=== PATIENT | female | born 1995 | race Two or more races ===

== ENCOUNTER 2018-02-01 11:45 | Emergency (ER) | payer OTHER ==
[~2018-02-01] VITALS: Ht 144.8 cm; Wt 67.6 kg
== END 2018-02-01 14:13 | disposition home or self-care (01) ==
LOC: ER 11:45
DX: M26.69 Other specified disorders of temporomandibular joint (principal)

== ENCOUNTER 2018-02-09 08:44 | Outpatient (CLI) | payer OTHER | END 2018-02-09 15:00 | disposition home or self-care (01) | LOC: LAB 08:44 | DX: N92.5 Other specified irregular menstruation (principal); I95.89 Other hypotension; Z13.1 Encounter for screening for diabetes mellitus ==

== ENCOUNTER 2018-02-11 08:27 | Outpatient (CLI) | payer OTHER | END 2018-02-11 08:54 | disposition home or self-care (01) | LOC: SONOGRAMA 08:27 | DX: N92.5 Other specified irregular menstruation (principal) ==

== ENCOUNTER 2018-02-23 13:09 | Emergency (ER) | payer OTHER ==
[~2018-02-23] VITALS: Ht 152.4 cm; Wt 65.8 kg
== END 2018-02-23 21:38 | disposition home or self-care (01) ==
LOC: ER 13:09
DX: N83.292 Other ovarian cyst, left side (principal)

== ENCOUNTER 2018-03-19 10:58 | Outpatient (CLI) | payer OTHER | END 2018-03-19 11:10 | disposition home or self-care (01) | LOC: LAB 10:58 | DX: R97.8 Other abnormal tumor markers (principal) ==

== ENCOUNTER 2018-07-12 16:22 | Emergency (ER) | payer OTHER ==
[~2018-07-12] VITALS: Ht 144.8 cm; Wt 70.8 kg
== END 2018-07-12 19:56 | disposition home or self-care (01) ==
LOC: ER 16:22
DX: B34.9 Viral infection, unspecified (principal); R50.9 Fever, unspecified

== ENCOUNTER 2018-07-17 13:09 | Outpatient (CLI) | payer OTHER | END 2018-07-17 13:16 | disposition home or self-care (01) | LOC: LAB 13:09 | DX: Z11.3 Encounter for screening for infections with a predominantly sexual mode of transmission (principal) ==

== ENCOUNTER 2018-09-03 09:10 | Outpatient (CLI) | payer OTHER | END 2018-09-03 09:33 | disposition home or self-care (01) | LOC: LAB 09:10 | DX: R10.84 Generalized abdominal pain (principal); E78.49 Other hyperlipidemia; R42 Dizziness and giddiness; Z00.00 Encounter for general adult medical examination without abnormal findings ==

== ENCOUNTER 2018-09-03 10:21 | Outpatient (CLI) | payer OTHER | END 2018-09-03 10:29 | disposition home or self-care (01) | LOC: RAD 10:21 | DX: R10.84 Generalized abdominal pain (principal) ==